=== PATIENT | male | born 1990 | race Caucasian/White ===

== ENCOUNTER 2017-03-11 20:11 | Emergency (ER) | payer OTHER ==
--- NOTE | 2017-03-11 21:24 | ED ORDER SUMMARY ---
..... Patient: DANO ROSE OrderSheet [facility] VisitID: [id number] [place] [address] 27y, M Registration Date/Time: 03/11/2017 ORDER SHEET Weight: 70.3 kg (stated) Allergies: Azithromycin GENERAL ORDERS: Foot 3V Left (Pain at #4 distal MT and #5 toe.) Urgent (20:29 03/11/2017 JCoates) (Ack 20:33 [facility] Dietary Aide Teacher) (20:46 Edwina) Post-op Shoe (20:58 03/11/2017 JCoates) (Ack 21:01 Shelbi R.N.) (21:22 Shelbi R.N.) MEDICATION ORDERS: IV FLUIDS: ORDER SHEET NOTES: [Electronically signed by Greg Zuluaga R.N. (:03/11/2017)] [Electronically locked/signed by Greg Zuluaga R.N. (:03/11/2017)]
--- NOTE | 2017-03-11 21:24 | ED CLINICAL REPORT ---
Clinical Report - Physicians/Mid Levels [facility]ly [facility] [address] [place] [address] 03/11/2017 20:14 Patient: DANO ROSE Time Seen: 20:24 Mar 11 2017. Arrived- By private vehicle. Historian- patient. HISTORY OF PRESENT ILLNESS Chief Complaint: Injury to left foot. The injury happened yesterday. Occurred at home. ( patient says he was chasing his friend at home when he thinks he stepped wrong on his left foot. He is also not sure if he hit the coffee table.). The patient sustained a direct blow. Patient is experiencing moderate pain. No other injury. REVIEW OF SYSTEMS The patient complains of pain on weight bearing. He has had tingling, and weakness. All systems otherwise negative, except as recorded above. PAST HISTORY See nurses notes. The patient has not had a prior injury to the same area. Tetanus immunization status is up-to-date. SOCIAL HISTORY Never smoker. History of drug use: marijuana. No alcohol use. ADDITIONAL NOTES The nursing notes have been reviewed. PHYSICAL EXAM Appearance: Alert. Oriented X3. No acute distress. Head: Head atraumatic. Neck: Normal inspection. Respiratory: No respiratory distress. Abdomen: No visible injury. Back: Normal inspection. Skin: Skin warm and dry. Normal skin color. Normal skin turgor. Extremities: Left foot: moderate erythema and tenderness, mild swelling and small abrasion and ecchymosis of the lateral aspect of the foot and fifth toe. Neurovascular intact distally. No laceration, puncture wound, foreign body or deformity. Extremities otherwise negative. Gait: Gait not tested due to pain. Neuro, Vascular and Tendons: Vascular status intact. Sensation intact. Motor intact. Neuro: No motor deficit. No sensory deficit. LABS, X-RAYS, AND EKG Lt Foot X-ray: No left foot fracture. Left toe(s) fracture. Fracture involving the distal phalanx of the fifth toe. Soft tissue swelling. Views: 3 view foot series. Technique: good. The X-rays were interpreted by the radiologist. Prior films were not available for comparison. PROGRESS AND PROCEDURES Course of Care: 20:32 03/11/17. patient's stable. Pain at the left #5 toe as well as the fourth metatarsal. Foot x-ray ordered. He already appears under the influence so we'll hold off on pain medication for now as he doesn't appear to be in significant pain. I think he has a distal phalanx fracture and we will treat with immobilization. Follow up next week withorthopedics. Discussed need for limited movement of the toe for proper healing. Disposition: Discharged in good and unchanged condition. CLINICAL IMPRESSION Nondisplaced fracture of the distal phalanx of the fifth toe. INSTRUCTIONS Jimmy tape toes until released. Elevate affected areas above chest level for two days. No strenuous activity. No dietary restrictions. Warnings: COMPLICATIONS: Complications from this condition are possible. Future problems may include poor fracture healing. INFECTION: Watch for signs of infection (increasing heat and redness, pus-like drainage, swelling, or increased pain). Return or see your doctor if these signs occur. It is important to follow up with a physician for further evaluation and treatment. GENERAL WARNINGS: Return or contact your physician immediately if your condition worsens or changes unexpectedly, if not improving as expected, or if other problems arise. Specifically return if vomiting, bleeding or fever. Prescription Medications: Ibuprofen 600 mg tablets: take 1 tablet orally every 8 hours for 3 days, as needed for pain. Dispense ten (10). No refill. Ultram 50 mg: take 1 orally every 6 hours for 2 days, as needed for pain. Dispense ten (10). No refills. Substitution is permissible. Understanding of the discharge instructions verbalized by patient. Follow-up with: [facility], , [address] [place], [id number] Follow up in five days even if well. (Electronically signed by Iban Baca, 03/11/2017 22:53)
--- NOTE | 2017-03-11 21:24 | ED ORDER SUMMARY ---
..... Patient: DANO ROSE OrderSheet 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 (:03/11/2017)] [Electronically locked/signed by Greg Zuluaga R.N. (:03/11/2017)]
--- NOTE | 2017-03-11 21:24 | ED CLINICAL REPORT ---
Clinical Report - Physicians/Mid Levels [facility] [address] [place] [address] 03/11/2017 20:14 Patient: DANO ROSE Time Seen: 20:24 Mar 11 2017. Arrived- By private vehicle. Historian- patient. HISTORY OF PRESENT ILLNESS Chief Complaint: Injury to left foot. The injury happened yesterday. Occurred at home. ( patient says he was chasing his friend at home when he thinks he stepped wrong on his left foot. He is also not sure if he hit the coffee table.). The patient sustained a direct blow. Patient is experiencing moderate pain. No other injury. REVIEW OF SYSTEMS The patient complains of pain on weight bearing. He has had tingling, and weakness. All systems otherwise negative, except as recorded above. PAST HISTORY See nurses notes. The patient has not had a prior injury to the same area. Tetanus immunization status is up-to-date. SOCIAL HISTORY Never smoker. History of drug use: marijuana. No alcohol use. ADDITIONAL NOTES The nursing notes have been reviewed. PHYSICAL EXAM Appearance: Alert. Oriented X3. No acute distress. Head: Head atraumatic. Neck: Normal inspection. Respiratory: No respiratory distress. Abdomen: No visible injury. Back: Normal inspection. Skin: Skin warm and dry. Normal skin color. Normal skin turgor. Extremities: Left foot: moderate erythema and tenderness, mild swelling and small abrasion and ecchymosis of the lateral aspect of the foot and fifth toe. Neurovascular intact distally. No laceration, puncture wound, foreign body or deformity. Extremities otherwise negative. Gait: Gait not tested due to pain. Neuro, Vascular and Tendons: Vascular status intact. Sensation intact. Motor intact. Neuro: No motor deficit. No sensory deficit. LABS, X-RAYS, AND EKG Lt Foot X-ray: No left foot fracture. Left toe(s) fracture. Fracture involving the distal phalanx of the fifth toe. Soft tissue swelling. Views: 3 view foot series. Technique: good. The X-rays were interpreted by the radiologist. Prior films were not available for comparison. PROGRESS AND PROCEDURES Course of Care: 20:32 03/11/17. patient's stable. Pain at the left #5 toe as well as the fourth metatarsal. Foot x-ray ordered. He already appears under the influence so we'll hold off on pain medication for now as he doesn't appear to be in significant pain. I think he has a distal phalanx fracture and we will treat with immobilization. Follow up next week withorthopedics. Discussed need for limited movement of the toe for proper healing. Disposition: Discharged in good and unchanged condition. CLINICAL IMPRESSION Nondisplaced fracture of the distal phalanx of the fifth toe. INSTRUCTIONS Jimmy tape toes until released. Elevate affected areas above chest level for two days. No strenuous activity. No dietary restrictions. Warnings: COMPLICATIONS: Complications from this condition are possible. Future problems may include poor fracture healing. INFECTION: Watch for signs of infection (increasing heat and redness, pus-like drainage, swelling, or increased pain). Return or see your doctor if these signs occur. It is important to follow up with a physician for further evaluation and treatment. GENERAL WARNINGS: Return or contact your physician immediately if your condition worsens or changes unexpectedly, if not improving as expected, or if other problems arise. Specifically return if vomiting, bleeding or fever. Prescription Medications: Ibuprofen 600 mg tablets: take 1 tablet orally every 8 hours for 3 days, as needed for pain. Dispense ten (10). No refill. Ultram 50 mg: take 1 orally every 6 hours for 2 days, as needed for pain. Dispense ten (10). No refills. Substitution is permissible. Understanding of the discharge instructions verbalized by patient. Follow-up with: [facility], , [address] [place], [id number] Follow up in five days even if well. (Electronically signed by Iban Baca, 03/11/2017 22:53)
--- NOTE | 2017-03-11 21:24 | ED NURSING NOTES ---
Clinical Report - Nurses [facility] [address] [place] [address] 03/11/2017 20:14 Patient: DANO ROSE TRIAGE Triage time 20:23. Acuity: LEVEL 4. Chief Complaint: INJURY TO THE LEFT FIFTH TOE. 20:29. Alert. SEPSIS SCREEN: Sepsis Screen. Negative (no infection suspected/documented). JENNIFER COMA SCORE: [place] Coma Scale: 15- eyes open spontaneously (4); best verbal response- oriented x 4 (5); best motor response- obeys commands (6). --20:29 Greg Zuluaga R.N. 20:23 03/11/17. BP: 128/76. HR: 91. RR: 15. O2 saturation: 98%. Temp: 97.5 F (oral). Pain level now: 03/28. --20:29 Greg Zuluaga R.N. Weight: 70.3 kg stated. Height/Length: 71 inches Per Patient. BMI: 21.6. --20:28 Greg Zuluaga R.N. Medications None. --20:25 Greg Zuluaga R.N. Medication/allergy information source: the patient. --20:29 Greg Zuluaga R.N. Allergies Azithromycin. --20:26 Greg Zuluaga R.N. History Arrived by private vehicle. Historian: patient. Accompanied by family. Primary physician (None). This occurred yesterday. Occurred at home. Mechanism of injury: (Runnng barefoot). 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 PAST MEDICAL HX: Tetanus status: up-to-date. Immunizations: up-to-date. SOCIAL HX: Never smoker. Occasional alcohol use. History of drug use: marijuana. (daily). No infectious disease exposure. ABUSE ASSESSMENT: No report of abuse. FALL RISK ASSESSMENT: Fall risk assessment completed. No fall risk identified. NUTRITIONAL RISK ASSESSMENT: The nutritional risk assessment revealed no deficiencies. FUNCTIONAL ASSESSMENT: Functional assessment: no impairments noted. LEARNING NEEDS ASSESSMENT: The learning needs assessment revealed no barriers. SKIN INTEGRITY ASSESSMENT: Skin integrity risk assessment completed. No skin integrity risk identified. --20:29 Greg Zuluaga R.N. PROBLEMS: Irritable Bowel Syndrome. Back Pain. --20:26 Greg Zuluaga R.N. ADDITIONAL SURGERIES: Colonoscopy. Endoscopy. --20:26 Greg Zuluaga R.N. Interventions ID band on patient. To treatment room. --20:29 Greg Zuluaga R.N. PHYSICAL ASSESSMENT 20:27. Ambulatory to room. GENERAL / NEURO / PSYCH: Oriented X 4. Alert. EXTREMITIES: Neuro-vascular status intact to the extremity. Left fifth toe: ecchymosis and small abrasion. SKIN: Skin intact. Skin is warm and dry. --20:27 Greg Zuluaga R.N. NURSING PROGRESS NOTES 20:28. Two patient identifiers checked. Call light placed in reach. Bed placed in lowest position. Brakes of bed on. Patient ready for evaluation- chart flagged. --20:28 Greg Zuluaga R.N. 20:37 Portable x-ray left foot. --20:38 Greg Zuluaga R.N. Ortho shoe applied to left foot by tech; distal pulses intact, sensation intact and motor function within normal limits. --21:13 Luis Alberto Das, ER Tech1 21:09 Toe ivan taped by ED KHANG Baca. --21:20 Greg Zuluaga R.N. Extremities: Neuro-vascular status intact to the extremities. 21:13. The patient is calm and resting quietly. GENERAL / NEURO / PSYCH: Alert. Oriented X 4. RESPIRATORY: No respiratory distress. SKIN: Skin is warm and dry. --21:22 Greg Zuluaga R.N. DISPOSITION / DISCHARGE Departure time: 21:16. Condition at departure: stable. No learning barriers present. Discharge instructions provided and reviewed with the patient. Reviewed medication(s) side effects, precautions, dosing and course information. Prescription(s) given to the patient. Patient verbalized understanding. Written instructions provided in Danish. The patient was discharged home and accompanied by family. He left the Emergency Department ambulatory, via private vehicle and (cane). Patient driving. FALL RISK ASSESSMENT: Fall risk assessment completed. No fall risk identified. --21:18 Quivey, Greg, R.N. Locked/Released at 03/11/2017 21:22 by Greg Zuluaga R.N.
--- NOTE | 2017-03-11 21:24 | ED NURSING NOTES ---
Clinical Report - Nurses [facility] [address] [place] [address] 03/11/2017 20:14 Patient: DANO ROSE TRIAGE Triage time 20:23. Acuity: LEVEL 4. Chief Complaint: INJURY TO THE LEFT FIFTH TOE. 20:29. Alert. SEPSIS SCREEN: Sepsis Screen. Negative (no infection suspected/documented). JENNIFER COMA SCORE: [place] Coma Scale: 15- eyes open spontaneously (4); best verbal response- oriented x 4 (5); best motor response- obeys commands (6). --20:29 Greg Zuluaga R.N. 20:23 03/11/17. BP: 128/76. HR: 91. RR: 15. O2 saturation: 98%. Temp: 97.5 F (oral). Pain level now: 03/28. --20:29 Greg Zuluaga R.N. Weight: 70.3 kg stated. Height/Length: 71 inches Per Patient. BMI: 21.6. --20:28 Greg Zuluaga R.N. Medications None. --20:25 Greg Zuluaga R.N. Medication/allergy information source: the patient. --20:29 Greg Zuluaga R.N. Allergies Azithromycin. --20:26 Greg Zuluaga R.N. History Arrived by private vehicle. Historian: patient. Accompanied by family. Primary physician (None). This occurred yesterday. Occurred at home. Mechanism of injury: (Runnng barefoot). 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 PAST MEDICAL HX: Tetanus status: up-to-date. Immunizations: up-to-date. SOCIAL HX: Never smoker. Occasional alcohol use. History of drug use: marijuana. (daily). No infectious disease exposure. ABUSE ASSESSMENT: No report of abuse. FALL RISK ASSESSMENT: Fall risk assessment completed. No fall risk identified. NUTRITIONAL RISK ASSESSMENT: The nutritional risk assessment revealed no deficiencies. FUNCTIONAL ASSESSMENT: Functional assessment: no impairments noted. LEARNING NEEDS ASSESSMENT: The learning needs assessment revealed no barriers. SKIN INTEGRITY ASSESSMENT: Skin integrity risk assessment completed. No skin integrity risk identified. --20:29 Greg Zuluaga R.N. PROBLEMS: Irritable Bowel Syndrome. Back Pain. --20:26 Greg Zuluaga R.N. ADDITIONAL SURGERIES: Colonoscopy. Endoscopy. --20:26 Greg Zuluaga R.N. Interventions ID band on patient. To treatment room. --20:29 Greg Zuluaga R.N. PHYSICAL ASSESSMENT 20:27. Ambulatory to room. GENERAL / NEURO / PSYCH: Oriented X 4. Alert. EXTREMITIES: Neuro-vascular status intact to the extremity. Left fifth toe: ecchymosis and small abrasion. SKIN: Skin intact. Skin is warm and dry. --20:27 Greg Zuluaga R.N. NURSING PROGRESS NOTES 20:28. Two patient identifiers checked. Call light placed in reach. Bed placed in lowest position. Brakes of bed on. Patient ready for evaluation- chart flagged. --20:28 Greg Zuluaga R.N. 20:37 Portable x-ray left foot. --20:38 Greg Zuluaga R.N. Ortho shoe applied to left foot by tech; distal pulses intact, sensation intact and motor function within normal limits. --21:13 Luis Alberto Das, ER Tech1 21:09 Toe ivan taped by ED KHANG Baca. --21:20 Greg Zuluaga R.N. Extremities: Neuro-vascular status intact to the extremities. 21:13. The patient is calm and resting quietly. GENERAL / NEURO / PSYCH: Alert. Oriented X 4. RESPIRATORY: No respiratory distress. SKIN: Skin is warm and dry. --21:22 Greg Zuluaga R.N. DISPOSITION / DISCHARGE Departure time: 21:16. Condition at departure: stable. No learning barriers present. Discharge instructions provided and reviewed with the patient. Reviewed medication(s) side effects, precautions, dosing and course information. Prescription(s) given to the patient. Patient verbalized understanding. Written instructions provided in [place]. The patient was discharged home and accompanied by family. He left the Emergency Department ambulatory, via private vehicle and (cane). Patient driving. FALL RISK ASSESSMENT: Fall risk assessment completed. No fall risk identified. --21:18 Quivey, Greg, R.N. Locked/Released at 03/11/2017 21:22 by Greg Zuluaga R.N.
--- NOTE | 2017-03-11 22:05 | DIAGNOSTIC IMAGING REPORT ---
PROCEDURE: XR FOOT 3 VIEWS - LEFT INDICATION: TRAUMA/INJURY TECHNIQUE: Three views of the left foot. COMPARISON: None. FINDINGS: Normal mineralization. Incomplete transverse lucent fracture plane versus incomplete segmentation of the fifth distal phalanx. Normal bony alignment. No suspicious soft tissue calcifications or radiodense foreign bodies. IMPRESSION: 1. Questionable nondisplaced transverse fifth distal phalanx fracture. Suggest immobilization and re-imaging in 7-10 days.
--- NOTE | 2017-03-11 22:53 | ED DISCHARGE INSTRUCTIONS ---
Patient: DANO ROSE General Instructions [facility] VisitID: [id number] [address] [place] [address] 27y, M Registration Date/Time: 03/11/2017 Nondisplaced fracture of the distal phalanx of the fifth toe. INSTRUCTIONS Ivan tape toes until released. Elevate affected areas above chest level for two days. No strenuous activity. No dietary restrictions. Warnings: COMPLICATIONS: Complications from this condition are possible. Future problems may include poor fracture healing. INFECTION: Watch for signs of infection (increasing heat and redness, pus-like drainage, swelling, or increased pain). Return or see your doctor if these signs occur. It is important to follow up with a physician for further evaluation and treatment. GENERAL WARNINGS: Return or contact your physician immediately if your condition worsens or changes unexpectedly, if not improving as expected, or if other problems arise. Specifically return if vomiting, bleeding or fever. Prescription Medications: Ibuprofen 600 mg tablets: take 1 tablet orally every 8 hours for 3 days, as needed for pain. Dispense ten (10). No refill. Ultram 50 mg: take 1 orally every 6 hours for 2 days, as needed for pain. Dispense ten (10). No refills. Substitution is permissible. Understanding of the discharge instructions verbalized by patient. Follow-up with: [facility], , [address], [place], [address] Follow up in five days even if well. ADDITIONAL INFORMATION Fracture:Toe [Closed] You have a fracture of your toe (broken toe). This causes local pain, swelling and bruising. This injury takes about four weeks to heal. Toe injuries are often treated by taping the injured toe to the next one ("ivan taping"). This protects the injured toe and holds it in position. If the TOENAIL has been severely injured, it may fall off in 1-2 weeks. It takes up to 12 months for a new toenail to grow back. Home Care: 1) You may be given a cast shoe to wear to prevent movement in your toe. If not, you can use a sandal or any shoe that does not put pressure on the injured toe until the swelling and pain go away. If using a sandal, be careful not to strike your foot against anything, since another injury could make the fracture worse. If you were given crutches, do not put full weight on the injured foot until you can do so without pain. 2) Keep your foot elevated to reduce pain and swelling. When sleeping, place a pillow under the injured leg. When sitting, support the injured leg so it is level with your waist. This is very important during the first 48 hours. 3) Apply an ice pack (ice cubes in a plastic bag, wrapped in a towel) over the injured area for 20 minutes every 1-2 hours the first day. Continue with ice packs 3-4 times a day for the next two days, then as needed for the relief of pain and swelling. 4) If ivan tape was applied and it becomes wet or dirty, change it. You may replace it with paper, plastic or cloth tape. Cloth tape and paper tapes must be kept dry. 5) You may use acetaminophen (Tylenol) or ibuprofen (Motrin, Advil) to control pain, unless another pain medicine was prescribed. [ NOTE : If you have chronic liver or kidney disease or ever had a stomach ulcer or GI bleeding, talk with your doctor before using these medicines.] 6) You may return to sports or physical education activities after 4 weeks or when you can run without pain. Follow Up With Your Doctor In One Week, Or As Advised By Our Staff, To Be Sure The Bone Is Healing Properly. [NOTE: Any X-rays taken will be reviewed by a radiologist. You will be notified of any new findings that may affect your care.] Get Prompt Medical Attention If Any Of The Following Occur: Increasing pain or swelling Toe becomes cold, blue, numb or tingly Signs of infection: fever, redness, warmth, swelling or drainage from the wound Fever of 100.4F (38C) or higher, or as directed by your healthcare provider Ibuprofen Oral tablet What is this medicine? IBUPROFEN (eye BYOO proe fen) is a non-steroidal anti-inflammatory drug (NSAID). It is used for dental pain, fever, headaches or migraines, osteoarthritis, rheumatoid arthritis, or painful monthly periods. It can also relieve minor aches and pains caused by a cold, flu, or sore throat. How should I use this medicine? Take this medicine by mouth with a glass of water. Follow the directions on the prescription label. Take this medicine with food if your stomach gets upset. Try to not lie down for at least 10 minutes after you take the medicine. Take your medicine at regular intervals. Do not take your medicine more often than directed. A special MedGuide will be given to you by the pharmacist with each prescription and refill. Be sure to read this information carefully each time. Talk to your digital communications manager regarding the use of this medicine in children. Special care may be needed. What side effects may I notice from receiving this medicine? Side effects that you should report to your doctor or health director critical care as soon as possible: allergic reactions like skin rash, itching or hives, swelling of the face, lips, or tongue black or bloody stools, blood in the urine or in vomit breathing problems changes in vision chest pain general ill feeling or flu-like symptoms nausea or vomiting redness, blistering, peeling or loosening of the skin, including inside the mouth slurred speech or weakness on one side of the body stomach pain unexplained weight gain or swelling unusually weak or tired yellowing of eyes or skin Side effects that usually do not require medical attention (report to your doctor or health director critical care if they continue or are bothersome): constipation or diarrhea dizziness gas or heartburn stomach upset What may interact with this medicine? Do not take this medicine with any of the following medications: cidofovir ketorolac methotrexate pemetrexed This medicine may also interact with the following medications: alcohol aspirin diuretics lithium other drugs for inflammation like prednisone warfarin What if I miss a dose? If you miss a dose, take it as soon as you can. If it is almost time for your next dose, take only that dose. Do not take double or extra doses. Where should I keep my medicine? Keep out of the reach of children. Store at room temperature between 15 and 30 degrees C (59 and 86 degrees F). Keep container tightly closed. Throw away any unused medicine after the expiration date. What should I tell my health care provider before I take this medicine? They need to know if you have any of these conditions: asthma cigarette smoker drink more than 3 alcohol containing drinks a day heart disease or circulation problems such as heart failure or leg edema (fluid retention) high blood pressure kidney disease liver disease stomach bleeding or ulcers an unusual or allergic reaction to ibuprofen, aspirin, other NSAIDS, other medicines, foods, dyes, or preservatives or trying to get breast-feeding What should I watch for while using this medicine? Tell your doctor or healthcare professional if your symptoms do not start to get better or if they get worse. This medicine does not prevent heart attack or stroke. In fact, this medicine may increase the chance of a heart attack or stroke. The chance may increase with longer use of this medicine and in people who have heart disease. If you take aspirin to prevent heart attack or stroke, talk with your doctor or health director critical care. Do not take other medicines that contain aspirin, ibuprofen, or naproxen with this medicine. Side effects such as stomach upset, nausea, or ulcers may be more likely to occur. Many medicines available without a prescription should not be taken with this medicine. This medicine can cause ulcers and bleeding in the stomach and intestines at any time during treatment. Ulcers and bleeding can happen without warning symptoms and can cause . To reduce your risk, do not smoke cigarettes or drink alcohol while you are taking this medicine. You may get drowsy or dizzy. Do not drive, use machinery, or do anything that needs mental alertness until you know how this medicine affects you. Do not stand or sit up quickly, especially if you are an older patient. This reduces the risk of dizzy or fainting spells. This medicine can cause you to bleed more easily. Try to avoid damage to your teeth and gums when you brush or floss your teeth. Tramadol Hydrochloride Oral tablet What is this medicine? TRAMADOL (TRA ma dole) is a pain reliever. It is used to treat moderate to severe pain in adults. How should I use this medicine? Take this medicine by mouth with a full glass of water. Follow the directions on the prescription label. If the medicine upsets your stomach, take it with food or milk. Do not take more medicine than you are told to take. Talk to your digital communications manager regarding the use of this medicine in children. Special care may be needed. What side effects may I notice from receiving this medicine? Side effects that you should report to your doctor or health director critical care as soon as possible: allergic reactions like skin rash, itching or hives, swelling of the face, lips, or tongue breathing difficulties, wheezing confusion itching light headedness or fainting spells redness, blistering, peeling or loosening of the skin, including inside the mouth seizures Side effects that usually do not require medical attention (report to your doctor or health director critical care if they continue or are bothersome): constipation dizziness drowsiness headache nausea, vomiting What may interact with this medicine? Do not take this medicine with any of the following medications: MAOIs like Carbex, Eldepryl, Marplan, Nardil, and Parnate This medicine may also interact with the following medications: alcohol or medicines that contain alcohol antihistamines benzodiazepines bupropion carbamazepine or oxcarbazepine clozapine cyclobenzaprine digoxin furazolidone linezolid medicines for depression, anxiety, or psychotic disturbances medicines for migraine headache like almotriptan, eletriptan, frovatriptan, naratriptan, rizatriptan, sumatriptan, zolmitriptan medicines for pain like pentazocine, buprenorphine, butorphanol, meperidine, nalbuphine, and propoxyphene medicines for sleep muscle relaxants naltrexone phenobarbital phenothiazines like perphenazine, thioridazine, chlorpromazine, mesoridazine, fluphenazine, prochlorperazine, promazine, and trifluoperazine procarbazine warfarin What if I miss a dose? If you miss a dose, take it as soon as you can. If it is almost time for your next dose, take only that dose. Do not take double or extra doses. Where should I keep my medicine? Keep out of the reach of children. Store at room temperature between 15 and 30 degrees C (59 and 86 degrees F). Keep container tightly closed. Throw away any unused medicine after the expiration date. What should I tell my health care provider before I take this medicine? They need to know if you have any of these conditions: brain tumor depression drug abuse or addiction head injury if you frequently drink alcohol containing drinks kidney disease or trouble passing urine liver disease lung disease, asthma, or breathing problems seizures or epilepsy suicidal thoughts, plans, or attempt; a previous suicide attempt by you or a family member an unusual or allergic reaction to tramadol, codeine, other medicines, foods, dyes, or preservatives or trying to get breast-feeding What should I watch for while using this medicine? Tell your doctor or health director critical care if your pain does not go away, if it gets worse, or if you have new or a different type of pain. You may develop tolerance to the medicine. Tolerance means that you will need a higher dose of the medicine for pain relief. Tolerance is normal and is expected if you take this medicine for a long time. Do not suddenly stop taking your medicine because you may develop a severe reaction. Your body becomes used to the medicine. This does NOT mean you are addicted. Addiction is a behavior related to getting and using a drug for a non-medical reason. If you have pain, you have a medical reason to take pain medicine. Your doctor will tell you how much medicine to take. If your doctor wants you to stop the medicine, the dose will be slowly lowered over time to avoid any side effects. You may get drowsy or dizzy. Do not drive, use machinery, or do anything that needs mental alertness until you know how this medicine affects you. Do not stand or sit up quickly, especially if you are an older patient. This reduces the risk of dizzy or fainting spells. Alcohol can increase or decrease the effects of this medicine. Avoid alcoholic drinks. You may have constipation. Try to have a bowel movement at least every 2 to 3 days. If you do not have a bowel movement for 3 days, call your doctor or health director critical care. Your mouth may get dry. Chewing sugarless gum or sucking hard candy, and drinking plenty of water may help. Contact your doctor if the problem does not go away or is severe. You have been given the following additional information: Fracture, Toe [Closed] Ibuprofen Oral tablet Tramadol Hydrochloride Oral tablet No strenuous activity. (Electronically signed by Iban Baca, 03/11/2017 22:53)
--- NOTE | 2017-03-11 22:53 | ED MED RECONCILIATION SUMMARY ---
Patient: DANO ROSE Medication Reconciliation Report [facility] VisitID: [id number] [address] [place] [address] 27y, M Registration Date/Time: 03/11/2017 Weight: 70.3 kg Height/Length: 71 in. BMI: 21.6 ALLERGIES: Azithromycin The patient's Home Medications are listed below: NONE. The source(s) of the original Home Medication information: patient The following Medications were given to the patient in the Emergency Department: None. The following Medications were prescribed to the patient: Ibuprofen 600 mg tablets: take 1 tablet orally every 8 hours for 3 days, as needed for pain. Dispense ten (10). No refill. -- Iban Baca Ultram 50 mg: take 1 orally every 6 hours for 2 days, as needed for pain. Dispense ten (10). No refills. Substitution is permissible. -- Iban Baca
--- NOTE | 2017-03-11 22:53 | ED MAR SUMMARY ---
..... Medication Administration Record [facility] [address] [place], [place] [id number] Patient: DANO ROSE Visit ID: [id number] 27y, M Weight: 70.3 kg Height/Length: 71 in BMI: 21.6 ALLERGIES: Azithromycin
--- NOTE | 2017-03-11 22:53 | ED MED RECONCILIATION SUMMARY ---
Patient: DANO ROSE Medication Reconciliation Report [facility] VisitID: [id number] [address] [place] [address] 27y, M Registration Date/Time: 03/11/2017 Weight: 70.3 kg Height/Length: 71 in. BMI: 21.6 ALLERGIES: Azithromycin The patient's Home Medications are listed below: NONE. The source(s) of the original Home Medication information: patient The following Medications were given to the patient in the Emergency Department: None. The following Medications were prescribed to the patient: Ibuprofen 600 mg tablets: take 1 tablet orally every 8 hours for 3 days, as needed for pain. Dispense ten (10). No refill. -- Iban Baca Ultram 50 mg: take 1 orally every 6 hours for 2 days, as needed for pain. Dispense ten (10). No refills. Substitution is permissible. -- Iban Baca
--- NOTE | 2017-03-11 22:53 | ED MAR SUMMARY ---
..... Medication Administration Record [facility] [address], [place] [id number] Patient: DANO ROSE Visit ID: [id number] 27y, M Weight: 70.3 kg Height/Length: 71 in BMI: 21.6 ALLERGIES: Azithromycin
== END 2017-03-11 21:16 | disposition home or self-care (01) ==
LOC: ED SRH 20:11
DX: S92.535A Nondisplaced fracture of distal phalanx of left lesser toe(s), initial encounter for closed fracture (principal); W22.8XXA Striking against or struck by other objects, initial encounter; Y93.02 Activity, running; Y99.9 Unspecified external cause status; Y92.009 Unspecified place in unspecified non-institutional (private) residence as the place of occurrence of the external cause